=== PATIENT | male | born 1990 | race Caucasian/White ===

== ENCOUNTER → 2025-04-07 | Outpatient (CLI) | payer MEDICARE, OTHER, SELFPAY ==
[2025-04-07 18:24] LABS: Cholesterol 152 mg/dL (<=200); High Density Lipoprotein 26 mg/dL; Low Density Lipoprotein Calc. 19 mg/dL; Thyroid Stim Hormone (TSH) 0.901 uIU/mL (0.300-4.200); Triglycerides 536 mg/dL; Very Low Density Lipoprotein 107 mg/dL (5-40)
[2025-04-07 18:39] LABS: Absolute Lymphocyte Count 2.34 X10^3/uL (0.83-4.51); Absolute Neutrophil Count 5.8 X10^3/uL (2.0-7.7); Basophil# 0.04 X10^3/uL; Basophil% 0.4 % (0-1); Eosinophil# 0.27 X10^3/uL; Hemoglobin 14.7 g/dL (13.0-16.5); Lymphocyte # 2.34 X10^3/ul (0.83-4.51); Lymphocyte % 25.6 % (19-41); Mean Corp Hgb Conc 34.2 g/dL (32-36); Mean Corpuscular Hgb 27.8 pg (27.0-32.0); Mean Corpuscular Volume 81.4 fL (80-94); Mean Platelet Vol. 10.8 fl (6.2-12.0); Monocyte# 0.58 X10^3/uL; Monocyte% 6.3 % (0-10); NRBC Flagged by Analyzer 0 % (0-5); Neutrophil # 5.78 X10^3/uL (2.7-7.7); Neutrophil % 63.2 % (47-70); Platelet Count 243 K/mm3 (150-450); RBC Distribution Width CV 13.4 % (11.6-14.6); RBC Distribution Width SD 39.2 fl (35.1-43.9); Red Blood Count 5.28 M/mm3 (4.6-6.2); White Blood Count 9.2 K/mm3 (4.4-11.0)
[2025-04-07 18:52] LABS: ALB/GLOB Ratio 1.3 RATIO (0.9-2.4); AST(SGOT) 28 U/L (<=37); Alanine Aminotransfer ALT/SGPT 26 U/L (<=46); Albumin, Serum 4.5 g/dL (3.5-5.0); Alkaline Phosphatase 81 U/L (40-129); Anion Gap 14 (5-15); BUN 9 mg/dL (4-19); BUN/Creat Ratio 11.4 RATIO (10-20); Calcium,Total 9.8 mg/dL (7.6-11.0); Carbon Dioxide 22.9 mmol/L (21.0-32.0); Chloride 101 mmol/L (98-108); Creatinine, Serum 0.79 mg/dL (0.70-1.20); EST Glomerular Filtration Rate 120 (>60); Globulin 3.5 g/dL (2.2-4.2); Glucose 146 mg/dL (70-99); Potassium 3.9 mmol/L (3.3-5.1); Protein, Total 7.9 g/dL (5.9-8.4); Sodium Level 138 mmol/L (133-145)
== END | disposition home or self-care (01) ==
PROVIDERS: PCP Family Medicine; Referring Provider Family Medicine; Visit Provider Family Medicine
DX: I10 Essential (primary) hypertension (principal); E03.9 Hypothyroidism, unspecified
CPT/HCPCS: 36415; 80053; 80061; 84443; 85025